=== PATIENT | female | born 1990 | race Caucasian/White ===

== ENCOUNTER 2019-04-07 11:37 | Emergency (ER) | payer OTHER ==
[2019-04-07] MEDS ORDERED: Thiamine INJ* 100 MG, Folic Acid IV* 1 MG, Multiple Vitamin IV ADULT* 10 ML in NS 0.9% ... IV ONE (11:59)
--- NOTE | 2019-04-07 12:00 | ED ---
GI/ HPI - HPI Summary HPI Summary: This patient is a 28 year old F presenting to ED with a chief complaint of diarrhea since 0200 this morning. Patient is extremely thin, but she reports the last time she ate was last night. Patient weighs 70lbs. At 0200 this morning , patient reports being unable to sleep due to continuous diarrhea. She has also had mild vomiting. Patient reports nausea, nasal congestion since yesterday. Patient denies chest pain, vaginal bleeding. Patient has two children ages 5 and 6 who are both in school. She has not had sexual intercourse in the past two years after she and her and she has not had a menstrual cycle in the last year. Patient is brought by her ex- to the ED. He reports she was not this thin when she him. Per ex-, the children are well-fed. The patient rates the pain 0/10 in severity. Symptoms aggravated by nothing. Symptoms alleviated by nothing. 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 Negative: Chest Pain, New Sexual Partner Aggravating Factor(s): Nothing Alleviating Factor(s): Nothing - Allergy/Home Medications Allergies/Adverse Reactions: Allergies Allergy/AdvReac Type Severity Reaction Status Date / Time No Known Allergies Allergy Verified 02/17/13 18:02 Home Medications: Home Medications NK [No Home Medications Reported] 04/07/19 [History Confirmed 04/07/19] PMH/Surg Hx/FS Hx/Imm Hx Previously Healthy: Yes Endocrine/Hematology History: Denies: Hx Diabetes Cardiovascular History: Denies: Hx Hypercholesterolemia, Hx Hypertension Respiratory History: Denies: Hx Asthma, Hx Chronic Obstructive Pulmonary Disease (COPD) - Cancer History Hx Chemotherapy: No Hx Radiation Therapy: No - Surgical History Surgical History: None Surgery Procedure, Year, and Place: Denies - Immunization History Immunizations Up to Date: Yes Infectious Disease History: No Infectious Disease History: Denies: Traveled Outside the [place] in Last 30 Days - Family History Known Family History: Negative: Cardiac Disease, Hypertension, Diabetes - Social History Occupation: Employed Full-time Lives: With Family Alcohol Use: None Hx Substance Use: No Substance Use Type: Reports: None Hx Tobacco Use: No Smoking Status (MU): Never Smoked Tobacco Review of Systems ENT: Other - Congestion Negative: Chest Pain Positive: Vomiting, Diarrhea, Nausea Genitourinary: Negative - Vaginal bleeding All Other Systems Reviewed And Are Negative: Yes Physical Exam - Summary Physical Exam Summary: Constitutional: Emaciated, malnourished. Alert. (-) Distressed Skin: Warm, Dry HENT: Normocephalic; Atraumatic Eyes: Conjunctiva normal Neck: Musculoskeletal ROM normal neck. (-) JVD, (-) Stridor, (-) Tracheal deviation Cardio: Rhythm regular, rate normal, Heart sounds normal; Intact distal pulses; Peripheral pulses are weak but not thready, they are intact. Pulmonary/Chest wall: Effort normal. (-) Respiratory distress, (-) Wheezes, (-) Rales Abd: Soft, (-) tenderness, (-) Distension, (-) Guarding, (-) Rebound Musculoskeletal: (-) Edema Neuro: Alert, Oriented x3 Psych: Mood and affect Normal Triage Information Reviewed: Yes Vital Signs On Initial Exam: Initial Vitals Temp Pulse Resp BP Pulse Ox 96.2 F 46 12 62/40 0 04/07/19 11:38 04/07/19 11:38 04/07/19 11:38 04/07/19 11:38 04/07/19 11:38 Vital Signs Reviewed: Yes Procedures - Procedure Summary Procedure Summary: Bedside US performed to place IV and draw labs for type and screen. Patient tolerated procedure without complications. I was only able to draw the type and screen before the IV stopped drawing blood. - Sedation Patient Received Moderate/Deep Sedation with Procedure: No Diagnostics - Vital Signs Vital Signs Temp Pulse Resp BP Pulse Ox 04/07/19 11:38 96.2 F 46 12 62/40 0 - Laboratory Result Diagrams: 04/07/19 12:30 04/07/19 17:00 Lab Statement: Any lab studies that have been ordered have been reviewed, and results considered in the medical decision making process. - Radiology CXR Radiology Interpretation Completed By: Radiologist Summary of Radiographic Findings: NO ACTIVE CARDIOPULMONARY DISEASE IS NOTED. Dr. Mckeon has reviewed this radiology report. - CT CT A/P CT Interpretation Completed By: Radiologist Summary of CT Findings: 1. THE RECTUM IS DISPROPORTIONATELY DISTENDED WITH FLUID. NO BRISK ACTIVE GI BLEED IS IDENTIFIED AT THE TIME OF THIS EXAM. A NUCLEAR MEDICINE RED BLOOD CELL SCAN IS MORE SENSITIVE FOR SLOW GI BLEEDS. 2. SHOCK BOWEL IS LIKELY (GENERALIZED HYPEREMIA AND BOWEL WALL THICKENING BEST APPRECIATED CORONAL IMAGES). 3. PNEUMOMEDIASTINUM IS PARTIALLY IMAGED. 4. GENERALIZED SATE OF MALNOURISHMENT. 5. SUBCENTIMETER FOCUS OF ENHANCEMENT IN THE LIVER IS LIKELY CASINO SLOT SUPERVISOR OF AN INCIDENTAL HEMANGIOMA. FURTHER EVALUATION BY ULTRASOUND WHEN CLINICALLY APPROPRIATE. Dr. Mckeon has reviewed this report. - EKG 1206 Cardiac Rate: NL - 114 BPM EKG Rhythm: Sinus Tachycardia Summary of EKG Findings: An EKG at 1206 revealed sinus tachycardia at 114 BPM, prolonge QTc, hyperacute T-waves septal and lateral, no STEMI. Dr. Mckeon has reviewed and interpreted this EKG. Re-Evaluation - Re-Evaluation First Eval Re-Evaluation Time: 14:35 Comment: Patient had an episode of diarrhea with bright red blood. She states this has only happened mildly before. I may need to transfuse patient, but as she has been difficult to draw blood from and her blood samples have hemolyzed, I utilized bedside US to place an IV and draw a type and screen. Patient tolerated the procedure well. She denies being in any pain. Patient denies family history of cancer. Second Eval Re-Evaluation Time: 15:53 Comment: Discussed results and plan with patient. GIGU Course/Dx - Course Course Of Treatment: This patient is a 28 year old F presenting to ED with a chief complaint of diarrhea since 0200 this morning. In the ED course, patient received banana bag, magnesium sulfate, calcium gluconate, and fluids. An EKG at 1206 revealed sinus tachycardia at 114 BPM, prolonge QTc, hyperacute T-waves septal and lateral, no STEMI. CXR revealed: NO ACTIVE CARDIOPULMONARY DISEASE IS NOTED. Blood work revealed WBC 28.6, RBC 6.30, Hgb 16.9, Hct 53, RDW 18, platelets 562, MPV 6.6, neutrophils 26.2, lymphocytes 0.9, monocytes 1.3, sodium 122, potassium 3.4, chloride 87, magnesium 3.6, total protein 9.0, albumin 6.0, carbon dioxide <7, calcium 10.6. Initial temporal artery temperature 96.2, so I gave Zosyn and Vancomycin. While in the ED, patient had an episode of bloody diarrhea. Discussed patient case with Dr. Ferrer, who thinks the patient has shock bowel and possible pneumomediastinum per CT so he is requesting CT chest. At 1538, discussed patient case with Dr. Rand, GI, who will come see the patient, recommends surgery consult and ICU admission. At 1542, discussed patient case with Dr. Banegas, ICU, who will come see the patient and accepted the patient for admission to the ICU. At 1547, discussed patient case with Dr. Chanel, general surgeon, who will come see the patient. Will transfuse with two units of packed RBCs. Her CT A/P found the following results, which was discussed earlier in the day with radiology: 1. THE RECTUM IS DISPROPORTIONATELY DISTENDED WITH FLUID. NO BRISK ACTIVE GI BLEED IS IDENTIFIED AT THE TIME OF THIS EXAM. A NUCLEAR MEDICINE RED BLOOD CELL SCAN IS MORE SENSITIVE FOR SLOW GI BLEEDS. 2. SHOCK BOWEL IS LIKELY (GENERALIZED HYPEREMIA AND BOWEL WALL THICKENING BEST APPRECIATED CORONAL IMAGES). 3. PNEUMOMEDIASTINUM IS PARTIALLY IMAGED. 4. GENERALIZED SATE OF MALNOURISHMENT. 5. SUBCENTIMETER FOCUS OF ENHANCEMENT IN THE LIVER IS LIKELY CASINO SLOT SUPERVISOR OF AN INCIDENTAL HEMANGIOMA. FURTHER EVALUATION BY ULTRASOUND WHEN CLINICALLY APPROPRIATE. After a consult with both Dr. Banegas, ICU, and Dr. Chanel, the pt should be transfered due to her Dx of Shock Bowel and that she will require both a surgery and surgery intensive care which is not offered at [facility]. The transfer unit was called and the transfer process began at 1653. At 1722 Dr. Pereyra, SICU, in [facility] has accepted the pt for further care. Attending Attestation: 28-year-old female presented to my department with dizziness or syncope as well as report of vomiting and diarrhea at home. I do agree with all the information provided by the scribe as noted above. Patient was found to be extremely malnourished with markedly abnormal blood chemistries as well as a severe leukocytosis. Tachycardic and hypotensive concern for hypovolemia. It seemed initially that there was no obvious signs of bleeding and IV fluid boluses were started in the setting of the concern for severe malnutrition and dehydration. During her stay it was noted that she had a markedly elevated white blood cell count for which broad-spectrum antibiotics as well as blood cultures were started and ordered. She had a very large bloody bowel movement of approximately 1400cc concerning for lower GI bleed of course. CT scan of the abdomen and pelvis with IV contrast was completed showing diffuse shock bowel. Also showing concerns for possible pneumomediastinum which was confirmed on the CT scan of her thorax. Broad spectrum antibiotics again were already given including vancomycin and Zosyn. General surgery consult by Dr. Gamino as well as intensive care by Dr. Banegas was appreciated. They feel that her care would be best fit at a tertiary care center given that our resources cannot match the need for critical care. I did empirically transfuse HER-2 units of type specific blood as well as aggressive IV fluids as well as banana bag to try to reproduce some amount of nutrition to her system. For this reason I spoke to Dr. Wood from [facility] who has agreed to accept the patient directly to his surgical intensive care unit for further workup and management of shock bowel and pneumomediastinum , severe hyponatremia, severe dehydration, hypotensive shock. - Diagnoses Provider Diagnoses: Shock bowel - Physician Notifications Discussed Care Of Patient With: Juan Carlos Ferrer Time Discussed With Above Provider: 15:37 Instructed by Provider To: Transfer - Discussed patient case with Dr. Ferrer, who thinks the patient has shock bowel and possible pneumomediastinum per CT so he is requesting CT chest. At 1538, discussed patient case with Dr. Rand, GI , who will come see the patient, recommends surgery consult and ICU admission. At 1542, discussed patient case with Dr. Banegas, ICU, who will come see the patient and accepted the patient for admission to the ICU. At 1547, discussed patient case with Dr. Chanel, general surgeon, who will come see the patient. Admit/Transition Orders Completed By ED Provider: Yes Reason For Transfer: Specialty or service not available at [facility]., Patient not appropriate for [facility]. - Critical Care Time Critical Care Time: 75-104 min - 80 minutes Discharge ED - Sign-Out/Discharge Documenting (check all that apply): Patient Departure - Transfer to [facility], S[facility]. - Discharge Plan Condition: Stable Disposition: TRANS HIGHER LVL OF CARE FAC Referrals: No Primary Care Phys,NOPCP [Primary Care Provider] - - Billing Disposition and Condition Condition: STABLE Disposition: Trans Higher Lvl of Care Fac - Attestation Statements Document Initiated by Cecyibe: Yes Documenting Scribe: Estevan Montanez Provider For Whom Matthew is Documenting (Include Credential): Mustapha Mckeon MD Scribe Attestation: ICruzito Marco DiSanto, scribed for Mustapha Mckeon MD on 04/07/19 at 1757. Scribe Documentation Reviewed: Yes Provider Attestation: The documentation as recorded by the scribe, Estevan Montanez accurately reflects the service I personally performed and the decisions made by Mustapha davis MD Status of Scribe Document: Viewed
[2019-04-07] MEDS ORDERED: Magnesium Sulfate 2 GM IV* 2 GM/50 ML BAG IVPB ONE (12:10)
[2019-04-07] MEDS ORDERED: Calcium Gluconate INJ* 1 GM in NS 0.9% 100 ML* 100 ML IVPB ONE (12:31)
[2019-04-07 12:56] LABS: Hematocrit 53 % (35-47); Hemoglobin 16.9 g/dL (12.0-16.0); Mean Corpuscular HGB Conc 32 g/dL (31-36); Mean Corpuscular Hemoglobin 27 pg (27-31); Mean Corpuscular Volume 85 fL (80-97); Mean Platelet Volume 6.6 fL (7.4-10.4); Platelet Count 562 10^3/uL (150-450); Red Cell Distribution Width 18 % (10-15); White Blood Count 28.6 10^3/uL (3.5-10.8)
[2019-04-07] MEDS ORDERED: Piperacillin/Tazobac ADVAN(*) 3.375 GM in NS 0.9% 100 ML* 100 ML IVPB ONE (13:00)
[2019-04-07 13:02] LABS: ABS Eosinophils 0.2 10^3/ul (0-0.6); ABS Lymphocytes 0.9 10^3/ul (1.0-4.8); ABS Monocytes 1.3 10^3/ul (0-0.8); ABS Neutrophils 26.2 10^3/ul (1.5-7.7); Eosinophil % 0.5 %; Lymphocyte % 3.2 %
[2019-04-07] MEDS ORDERED: Iodixanol* (CONTRAST) 320 MG/ML 100 ML SDV IV ONE (15:22)
[2019-04-07] MEDS ORDERED: Vancomycin(*) 1,000 MG in NS 0.9% 250 ML* 250 ML IV ONE (15:36)
[2019-04-07 17:25] LABS: Activated Partial Thrombo Time 24.2 seconds (26.0-38.0); INR 0.93 (0.82-1.09)
[2019-04-07 17:37] LABS: ALT 29 U/L (7-52); AST 58 U/L (13-39); Albumin 3.7 g/dL (3.2-5.2); Albumin/Globulin Ratio 1.7 (1-3); Alkaline Phosphatase 118 U/L (34-104); BUN/Creatinine Ratio 11.3 (8-20); Blood Urea Nitrogen 24 mg/dL (6-24); Chloride 95 mmol/L (101-111); EGFR African American 33.1 (>60); EGFR Non-African American 27.4 (>60); Globulin 2.2 g/dL (2-4); Glucose 79 mg/dL (70-100); Indirect Bilirubin 0.6 mg/dL (0.3-1.0); Potassium 3.1 mmol/L (3.5-5.0); Sodium 122 mmol/L (135-145); Total Protein 5.9 g/dL (6.4-8.9)
[2019-04-07 17:38] LABS: HCG Pregnancy < 0.60 mIU/mL
[2019-04-07 17:40] LABS: Anion Gap 15 mmol/L (2-11); CO2 Carbon Dioxide 12 mmol/L (22-32)
[2019-04-07 17:48] LABS: Alcohol < 10 mg/dL (<10); Salicylate < 2.50 mg/dL (<30)
[2019-04-07] MEDS ORDERED: Lactated Ringers 1000 ML Bag* 1,000 ML IV SCH (18:00)
[2019-04-07 18:01] LABS: TSH (Thyroid Stimulating Horm) 0.95 mcIU/mL (0.34-5.60)
[2019-04-07 18:03] LABS: Free T4 1.32 ng/dL (0.61-1.12)
[2019-04-07 18:55] VITALS: BP 79/66
== END 2019-04-07 18:57 | disposition short-term general hospital (02) ==
LOC: ED 11:37
DX: K63.89 Other specified diseases of intestine (principal)
CPT/HCPCS: 36415; 71045; 71250; 74177; 80048; 80076; 80320; 80329; 82803; 83690; 83735; 84439; 84443; 84484; 84702; 85025; 85610; 85730; 86850; 86900; 86901; 86922; 87040; 93005; 96365; 96366; 99285; G0480; J0610; J2543; J3370; J3411; J3475; P9040; Q9967